=== PATIENT | male | born 1970 | race Caucasian/White ===

== ENCOUNTER 2024-12-03 08:10 | Emergency (ER) | payer OTHER, SELFPAY ==
[2024-12-03 08:12] VITALS: BP 167/107
--- NOTE | 2024-12-03 08:41 | ED.GENMED ---
History of Present Illness
General
Chief Complaint: Chest Pain
Time Seen by Provider: 12/03/24 08:41
History of Present Illness
History of Present Illness:
TIME OF INITIAL ENCOUNTER: 8:42 AM
HPI: The patient has been having a general unwell feeling. He admits to alcohol use on a daily basis. He has been having left upper extremity and chest pressure over the past couple of weeks. The symptoms occur sporadically and are not related to
exertion. He feels rather tremulous. He has paresthesias, sensation of anxiety, tremor, was vomiting.
EXAM:
GENERAL: Well appearing in no distress
HEENT: Moist oral mucosa
CARDIOVASCULAR: No murmurs, normal heart rate, regular rhythm, No chest wall tenderness
PULMONARY: No respiratory distress, breath sounds are clear and equal
ABDOMEN: Soft with no peritoneal signs, no tenderness
NEUROLOGIC: Upper extremity tremor noted, asterixis, no coordination deficits
PSYCHIATRIC: Appropriate mental status, normal insight and judgement, he is uncertain of the date and thought it was December 06 (currently December 03)
EXTREMITIES: Nontender, no edema, moves all extremities equally
SKIN: No rash, no lesions
NUMBER AND COMPLEXITY OF PROBLEMS ADDRESSED AT THE ENCOUNTER
� Chronic conditions affecting care: Drinks alcohol on daily basis, has had kidney stones
� Acute Exacerbation and/or Progression of Chronic Illness: This is an acute problem
� Differential Diagnosis includes: Alcohol withdrawal, electrolyte abnormality, essential tremor, ACS unlikely
AMOUNT AND/OR COMPLEXITY OF DATA TO BE REVIEWED AND ANALYZED
� I performed an independent evaluation of and my interpretation is:
EKG: Sinus 68, normal axis, nonspecific ST abnormality, PACs
CT:
X-rays:
Laboratory Studies: CBC unremarkable, MCV 95, chemistries unremarkable however the transaminases are slightly elevated with normal bili, troponin and lipase normal, alcohol undetected
Other:
� Review of other/old records: I reviewed records, the patient was seen here in 2020 with a kidney stone on the right side
� Clinical information was obtained by an independent historian:
� Prescriptions/Medications Considered but not given:
� Further testing considered but not performed:
RISK OF COMPLICATIONS AND/OR MORBIDITY OR MORTALITY OF PATIENT MANAGEMENT
� Social determinants of health affecting care: Lives at home
� Discussion with other providers: Contacted [facility] at 9am.
� Escalation of care including admission/observation vs risk of discharge considered: The patient presents with chest and arm discomfort in the setting of alcohol use daily. He has a CIWA score of 25 and is tremulous on exam.
He was given Ativan and fluids.
ANY OTHER UPDATES:
The patient's heart rate was in the 80s even before Ativan was given. Heart rate on reassessment at 10 AM is still in the 80s. He overall feels improved. [facility] evaluated the patient. The patient declined going to a facility for detox. He wants
to try oral medications at home which I feel is reasonable. Although he has a high CIWA score he actually came in more for a medical evaluation of his chest and arm discomfort for which no clear cardiac etiology was found. Transaminase elevated
likely due to alcohol use. Instructed patient not to drive if he takes benzos or drinks alcohol. Instructed patient not to drink alcohol if he takes benzos.
Past History
Past History
ED Past Medical History: Other (Sciatica Back pain, kidney stones)
ED Past Surgical History: None
Social History
Tobacco: Smoker
Alcohol: None
Personal:
Living: with family
Employment: Employed
Family History
Family History: Negative CAD
Phy Exam
Physical Exam
Physical Exam:
See HPI
Scores
Heart Score for Chest Pain Patients
STEMI patient?: Not applicable
Course
Orders/Labs/Results
Orders:
Orders
12/03/24 08:14
Electrocardiogram (*1) Urgent
Reason for Study: Chest Pain
EKG- Treatment ONCE
12/03/24 08:52
0.9% Sodium Chloride 1000 ml [Nss] 1,000 ml IV BOLUS
Lorazepam [Ativan] 2 mg IV NOW STA
12/03/24 09:03
Alcohol Urgent
Complete Blood Count/With Diff Urgent
Comprehensive Metabolic Panel Urgent
Lipase Urgent
Magnesium Urgent
Troponin I Urgent
12/03/24 09:11
Add On- LAB Urgent
Comments:: lipase
Tests Added?: lipase
Abnormal Lab Results
12/03/24
09:03
WBC 4.5 L 10^3/uL
(4.8-10.8)
RBC 4.28 L 10^6/uL
(4.70-6.10)
MCV 94.6 H fL
(80.0-94.0)
MCH 34.3 H pg
(27.0-31.0)
Plt Count 123 L 10^3/uL
(130-400)
Absolute Lymphs (auto) 1.0 L 10^3/uL
(1.2-3.4)
Monocytes % 11.7 H %
(1.7-9.3)
Glucose 127 H mg/dl
(70-99)
AST 201 H U/L
(17-59)
ALT 150 H U/L
(0-50)
12/03/24 09:03
12/03/24 09:03
Vital Signs
Initial and Last Documented VS:
Initial Vital Signs
Temp Pulse Resp BP Pulse Ox
36.5 C 102 16 167/107 100
12/03/24 08:12 12/03/24 08:12 12/03/24 08:12 12/03/24 08:12 12/03/24 08:12
Last Documented Vital Signs
Temp Pulse Resp BP Pulse Ox
36.5 C 70 15 133/88 97
12/03/24 08:12 12/03/24 10:00 12/03/24 10:00 12/03/24 10:00 12/03/24 09:45
*Critical Care Note
Total Time (30-74mins, 75-104mins- exclusive of procedures): Not Applicable
ED Attending Note
-
Portions of this chart may have been created with voice recognition software.� Occasional wrong word or��sound alike� substitutions may have occurred due to the inherent limitations of voice recognition software.
Discharge Plan
Departure
Patient Disposition: Home (Routine Discharge)
Date of Disposition: 12/03/24
Time of Disposition: 09:56
Patient with high blood pressure during this ER visit?: Yes
Discharge Problem:
Alcohol use disorder
Instructions: Alcohol withdrawal, Alcohol use disorder - Discharge instructions
Prescriptions:
New
lorazepam 0.5 mg tablet
See Rx Instructions .ROUTE .COMPLEX PRN (Reason: alcohol withdrawal) Qty: 20 0RF
Rx Instructions:
0.5 mg orally as needed; Day 1: 2-4 pills every 6 hours as needed; Day 2: 1-2 pills every 8 hours as needed; Day 3: 1-2 pills every 12 hours as needed
ondansetron HCl 4 mg tablet
4 mg PO Q8H PRN (Reason: nausea and vomiting) Qty: 14 0RF
lorazepam 0.5 mg tablet
0.5 mg PO Q6H PRN (Reason: alcohol withdrawal) Qty: 20 0RF
No Action
ondansetron 4 MG tablet,disintegrating
4 mg PO TIDPRN PRN (Reason: nausea) Qty: 9 0RF
azithromycin 250 MG tablet
500 mg PO DAILY Qty: 2 0RF
ondansetron 4 MG tablet,disintegrating
4 mg PO TIDPRN PRN (Reason: nausea/vomiting) Qty: 8 0RF
hydrocodone-acetaminophen 1 TABLET tablet
1 tab PO Q4HPRN PRN (Reason: severe pain) Qty: 8 0RF
tamsulosin 0.4 MG capsule
0.4 mg PO DAILY Qty: 14 0RF
Referrals:
Clinton Contreras DO [Family Provider, Internal Medicine]
Activity Restrictions/Additional Instructions:
I recommended 2-week course of [id number] omeprazole. I am also sending a prescription for nausea medicine (Zofran/ondansetron) to your pharmacy.
Lorazepam (instead of what is written on the bottle):
Day 1; 2-4 pills every 6 hours as needed
Day 2; 1-2 pills every 8 hours as needed
Day 3; 1-2 pills every 12 hours as needed
Follow-up as recommended by [facility]. Return here if worse or other concerns. No driving if you take lorazepam.
Interventions
Interventions:
*Risk Screen - Suicide Last Done: 12/03/24 08:13
*General Assessment Last Done: 12/03/24 09:32
*Neglect/Abuse Screening Last Done: 12/03/24 08:13
ED- Cardiac Assessment Last Done: 12/03/24 09:32
Discharge Date and Time
Print Language: [place]
[2024-12-03] MEDS: NSS 1000 IV (09:00)
[2024-12-03] MEDS: ATIVAN 2 MG IV (09:01)
[2024-12-03 09:16] LABS: % Basophils 1.1 % (0-2); % Eosinophils 0.4 % (0-6); % Immature Granulocytes 0.2 % (0-0.5); % Lymphocytes 21.3 % (20.5-51.1); % Monocytes 11.7 % (1.7-9.3); % Neutrophils 65.3 % (42.2-75.2); Absolute Basophils 0.1 10^3/uL (0-0.2); Absolute Monocytes 0.5 10^3/uL (0.1-0.6); Absolute Neutrophils 2.9 10^3/uL (1.4-6.5); Hematocrit 40.5 % (39.0-52.0); Hemoglobin 14.7 g/dL (13.0-18.0); Mean Corp Hgb Conc. 36.3 g/dL (33.0-37.0); Mean Corpuscular Hgb 34.3 pg (27.0-31.0); Mean Corpuscular Volume 94.6 fL (80.0-94.0); Mean Platelet Volume 9.7 fL (7.4-10.4); Nucleated Red Blood Cells % 0 % (-); Platelet Count 123 10^3/uL (130-400); Red Blood Cell Count 4.28 10^6/uL (4.70-6.10); White Blood Cell Count 4.5 10^3/uL (4.8-10.8)
[2024-12-03 09:35] LABS: ALT (SGPT) 150 U/L (0-50); AST (SGOT) 201 U/L (17-59); Albumin 4.5 g/dl (3.5-5.0); Alkaline Phosphatase 72 U/L (38-126); Blood Urea Nitrogen 9 mg/dl (9-20); Calcium 8.9 mg/dl (8.4-10.2); Carbon Dioxide 22 mmol/L (22-30); Chloride 107 mmol/L (98-107); Glucose 127 mg/dl (70-99); Lipase 249 U/L (23-300); Magnesium 1.7 mg/dl (1.6-2.3); Potassium 4.2 mmol/L (3.5-5.1); Sodium 138 mmol/L (135-145); Total Bilirubin 1.3 mg/dl (0.2-1.3); Total Protein 7.4 g/dl (6.3-8.2); eGFR > 60.00
[2024-12-03 09:38] LABS: Alcohol None Detected
[2024-12-03 09:45] LABS: Troponin I < 0.012 ng/ml
[2024-12-03 10:00] VITALS: BP 133/88
== END 2024-12-03 10:39 | disposition home or self-care (01) ==
LOC: EMR 08:10
PROVIDERS: EMERGENCY PHYSICIAN Emergency Medicine; FAMILY PHYSICIAN Internal Medicine
DX: F10.10 Alcohol abuse, uncomplicated (principal); R07.89 Other chest pain; R11.10 Vomiting, unspecified; M79.602 Pain in left arm; R25.1 Tremor, unspecified; R20.2 Paresthesia of skin; R03.0 Elevated blood-pressure reading, without diagnosis of hypertension; R74.01 Elevation of levels of liver transaminase levels; F41.9 Anxiety disorder, unspecified; Z87.442 Personal history of urinary calculi
CPT/HCPCS: 99284; 96374; 96361; 80053; 82077; 83690; 83735; 84484; 85025; 93005